=== PATIENT | female | born 2000 | race Caucasian/White ===

== ENCOUNTER 2018-01-18 21:57 | Emergency (ER) | payer OTHER ==
[2018-01-18 22:01] VITALS: RESP 16; TEMP 97.9
--- NOTE | 2018-01-18 22:09 | EDPHY ---
H & P Stated Complaint: abd pain Time Seen by Provider: 01/18/18 21:58 HPI/ROS: HPI CHIEF COMPLAINT: "I think my belly button is infected" HISTORY OF PRESENT ILLNESS: This patient is a 17-year-old female she is otherwise healthy she presents emergency room stating that for the past week she has had some discomfort around her umbilicus. It is now swollen and red. She denies any fever. She doses pain that goes from her belly button into her abdomen. She states she has had a umbilicus infection in the past 5-6 years ago. She has not had any drainage or pus from her abdomen. She denies any fever chest pain or shortness of breath. Denies any urinary symptoms. Pain is located 6/10 to her umbilicus region. Denies piercing or trauma to her abdomen , denies dirty water exposure. Past Medical History: Denies significant medical history Past Surgical History:Denies significant surgical history Social History: Denies drugs alcohol tobacco. [employer] student. Family History: Noncontributory ROS REVIEW OF SYSTEMS: A comprehensive 10 point review of systems is otherwise negative aside from elements mentioned in the history of present illness. Exam Constitutional appears well nontoxic no acute distress triage nursing summary reviewed, vital signs reviewed, awake/alert. Eyes normal conjunctivae and sclera, EOMI, PERRLA. HENT normal inspection, atraumatic, moist mucus membranes, no epistaxis, neck supple/ no meningismus, no raccoon eyes. Respiratory clear to auscultation bilaterally, normal breath sounds, no respiratory distress, no wheezing. Cardiovascular rate normal, regular rhythm, no murmur, no edema, distal pulses normal. Gastrointestinal umbilicus region: Tender palpation around the umbilicus. Mild swelling present. Mild erythema and warmth present. No peritoneal signs on exam. Pain is localized around the umbilicus region. Indurated and hard. no rebound, no guarding, normal bowel sounds, no distension, no pulsatile mass. Genitourinary no CVA tenderness. Musculoskeletal no midline vertebral tenderness, full range of motion, no calf swelling, no tenderness of extremities, no meningismus, good pulses, neurovascularly intact. Skin pink, warm, & dry, no rash, skin atraumatic. Neurologic awake, alert and oriented x 3, AAOx3, moves all 4 extremities equally, motor intact, sensory intact, CN II-XII intact, normal cerebellar, normal vision, normal speech. Psychiatric normal mood/affect. Heme/Lymph/Immune no lymphadenopathy. Differential Diagnosis: Includes but is not limited to in a particular order umbilical pain, umbilical inflammation, umbilical infection, intra-abdominal abscess, cellulitis, soft tissue infection Medical Decision Making: Plan for this patient IV establishment, IV pain control Dilaudid, IV Zofran nausea, gentle IV hydration, IV Ancef antibiotic, check basic blood work and re-evaluate. Re-evaluation: 2335: CT scan abdomen pelvis with IV contrast: Called to me by Dr. Barboza. This shows a area of inflammation at the umbilicus. Very small fluid collection probably less than 1 cc of fluid. Consistent with an umbilical infection. Patient here in emergency room is received 2 g of Ancef. White count noted on systemic blood work. Pain is well controlled. Will touch base with surgery to make sure this is not need to be drained at this time. I did recommend the patient that she does warm compresses 5 times a day, takes antibiotics. And return if worsening symptoms includes fever, abdominal pain, worsening swelling 2343: Spoke with Dr. Masters recommends close follow up with the clinic. He will be glad to see her this week. Recommends pain medicine and anti-inflammatory pain medicine. Most likely has a small umbilical fat containing hernia. 2343: Discussed at length with the patient about her CT results and blood work. Recommend taking antibiotics Keflex, warm compresses, and close follow- up with surgery. Additionally recommend return emergency room if there is worsening symptoms includes worsening pain, fever, vomiting questions or concerns. Source: Patient - Personal History LMP (Females 10-55): 15-21 Days Ago Current Tetanus/Diphtheria Vaccine: Yes Current Tetanus Diphtheria and Acellular Pertussis (TDAP): Yes - Medical/Surgical History Hx Asthma: Yes Hx Chronic Respiratory Disease: No Hx Diabetes: No Hx Cardiac Disease: No Hx Renal Disease: No Hx Cirrhosis: No Hx Alcoholism: No Hx HIV/AIDS: No Hx Splenectomy or Spleen Trauma: No Other PMH: denies - Social History Smoking Status: Never smoked Constitutional: Initial Vital Signs Temperature (C) 36.6 C 01/18/18 21:58 Heart Rate 104 H 01/18/18 21:58 Respiratory Rate 16 01/18/18 21:58 Blood Pressure 110/72 01/18/18 21:58 O2 Sat (%) 95 01/18/18 21:58 O2 Delivery Mode Room Air Allergies/Adverse Reactions: tree nut Allergy (Verified 01/18/18 22:01) Home Medications: Medication Instructions Recorded Cephalexin [Keflex] 500 mg PO Q6H #28 cap 01/18/18 Floucinonide 01/18/18 Hydrocodone/APAP 5/325 [[place] 1 - 2 tab PO Q4H PRN #10 tab 01/18/18 5/325] Ibuprofen [Motrin (*)] 800 mg PO Q6-8PRN #10 tab 01/18/18 Minocycline HCl ER 01/18/18 Tretinoin 01/18/18 ZYRTEC 01/18/18 Medical Decision Making - Diagnostics Imaging Results: Imaging Impressions Abdomen CT 01/18/18 22:44 Impression: 1. Inflamed umbilicus with small abscess versus phlegmon at its base along the external surface of the transversalis fascia. 2. No intraperitoneal process. Findings discussed with Emergency Department physician, Gerson Alva MD at 01/18/2018 23:41. - Data Points Laboratory Results: Laboratory Results 01/18/18 22:25 01/18/18 22:25 01/18/18 01/18/18 01/18/18 22:25 22:25 22:25 WBC 13.45 10^3/uL H 10^3/uL (3.80-9.50) RBC 5.11 10^6/uL 10^6/uL (4.18-5.33) Hgb 14.3 g/dL g/dL (12.6-16.3) Hct 42.9 % % (38.0-47.0) MCV 84.0 fL fL (81.5-99.8) MCH 28.0 pg pg (27.9-34.1) MCHC 33.3 g/dL g/dL (32.4-36.7) RDW 13.2 % % (11.5-15.2) Plt Count 281 10^3/uL 10^3/uL (150-400) MPV 11.2 fL fL (8.7-11.7) Neut % (Auto) 67.5 % % (39.3-74.2) Lymph % (Auto) 22.5 % % (15.0-45.0) [place] % (Auto) 8.5 % % (4.5-13.0) Eos % (Auto) 0.4 % L % (0.6-7.6) Baso % (Auto) 0.7 % % (0.3-1.7) Nucleat RBC Rel Count 0.1 % % (0.0-0.2) Absolute Neuts (auto) 9.08 10^3/uL H 10^3/uL (1.70-6.50) Absolute Lymphs (auto) 3.03 10^3/uL H 10^3/uL (1.00-3.00) Absolute Monos (auto) 1.14 10^3/uL H 10^3/uL (0.30-0.80) Absolute Eos (auto) 0.06 10^3/uL 10^3/uL (0.03-0.40) Absolute Basos (auto) 0.09 10^3/uL 10^3/uL (0.02-0.10) Absolute Nucleated RBC 0.02 10^3/uL H 10^3/uL (0-0.01) Immature Gran % 0.4 % % (0.0-1.1) Immature Gran # 0.05 10^3/uL 10^3/uL (0.00-0.10) Sodium 140 mEq/L mEq/L (135-145) Potassium 4.4 mEq/L mEq/L (3.5-5.2) Chloride 101 mEq/L mEq/L (97-110) Carbon Dioxide 25 mEq/l mEq/l (22-31) Anion Gap 14 mEq/L mEq/L (8-16) BUN 9 mg/dL mg/dL (7-23) Creatinine 0.5 mg/dL L mg/dL (0.6-1.0) Estimated GFR > 60 Glucose 85 mg/dL mg/dL (70-100) Calcium 10.2 mg/dL mg/dL (8.5-10.4) Beta HCG, Qual NEGATIVE Medications Given: Discontinued Medications Hydromorphone HCl (Dilaudid) 0.5 mg IVP EDNOW ONE Stop: 01/18/18 22:13 Last Admin: 01/18/18 22:25 Dose: 0.5 mg Sodium Chloride (Ns) 1,000 mls @ 0 mls/hr IV EDNOW ONE; Wide Open PRN Reason: Protocol Stop: 01/18/18 22:13 Last Admin: 01/18/18 22:24 Dose: 1,000 mls Cefazolin Sodium (Cefazolin Syringe) 2 gm in 20 mls @ 200 mls/hr IVP EDNOW ONE Stop: 01/18/18 22:50 Last Admin: 01/18/18 22:45 Dose: 20 mls Departure - Departure Disposition: Home, Routine, Self-Care Clinical Impression: Umbilical pain Condition: Good Instructions: Umbilical Hernia (ED) Additional Instructions: 1. Warm compresses 5 times a day. 2. Anti-inflammatory pain medicine for mild pain. 3. [place] for severe pain. 4. Antibiotics as prescribed. 5. Follow up with surgery call for follow-up appointment. 6. Return emergency room if there is worsening pain fever vomiting questions or concerns. Referrals: NONE *PRIMARY CARE P,. [Primary Care Provider] - As per Instructions Waldo Masters MD [Medical Doctor] - As per Instructions Prescriptions: Cephalexin [Keflex] 500 mg PO Q6H #28 cap Hydrocodone/APAP 5/325 [[place] 5/325] 1 - 2 tab PO Q4H PRN #10 tab PRN Reason: Pain, Moderate Ibuprofen [Motrin (*)] 800 mg PO Q6-8PRN #10 tab
[2018-01-18] MEDS ORDERED: NS 1,000 ML IV ONE (22:12)
[2018-01-18] MEDS ORDERED: HYDROmorphONE/DILAUDID 1 MG/ML INJ IVP ONE (22:12)
[2018-01-18] MEDS ORDERED: ceFAZolin 2 GM/DEXTROSE 100 ML IV ONE (22:13)
[2018-01-18] MEDS ORDERED: HYDROmorphONE/DILAUDID 2 MG/ML INJ ONE (22:16)
[2018-01-18 22:38] LABS: PLATELET COUNT 281 10^3/uL (150-400)
[2018-01-18] MEDS ORDERED: ceFAZolin 2 GM/SWFI 2 GM/20 ML SYR IVP ONE (22:45)
[2018-01-18] MEDS ORDERED: IOPAMIDOL (ISOVUE-300) 100 ML BTL ONE (22:46)
[2018-01-18] MEDS ORDERED: KETOROLAC 15 MG/1 ML SDV IVP ONE (23:43)
[2018-01-18 23:58] VITALS: BP 117/69; PULSE 85; O2SAT 97
== END 2018-01-18 23:57 | disposition home or self-care (01) ==
DX: R10.33 Periumbilical pain (principal); J45.909 Unspecified asthma, uncomplicated; E86.9 Volume depletion, unspecified
CPT/HCPCS: 96374; J0690; J1170; J1885; Q9967